=== PATIENT | female | born 1940 | race Caucasian/White ===

== ENCOUNTER → 2017-02-07 | Outpatient (CLI) | payer MEDICARE, BC ==
[~2017-02-07] MED LIST: DITROPAN XL10 MG PO; LISINOPRIL20 MG PO
== END ==
LOC: MC.RAD 13:14
DX: Z12.31 Encounter for screening mammogram for malignant neoplasm of breast (principal)

== ENCOUNTER 2018-02-06 11:00 | Outpatient (RCR) | payer MEDICARE, BC | END 2018-02-07 | disposition home or self-care (01) | LOC: WSPT | DX: I69.341 Monoplegia of lower limb following cerebral infarction affecting right dominant side (principal); R26.89 Other abnormalities of gait and mobility; Z91.81 History of falling | CPT/HCPCS: G8978-GP; G8979-GP ==

== ENCOUNTER → 2018-02-17 | Outpatient (CLI) | payer MEDICARE, BC | LOC: MC.RAD 11:04 | DX: Z12.31 Encounter for screening mammogram for malignant neoplasm of breast (principal) ==

== ENCOUNTER 2018-03-01 09:00 | Outpatient (RCR) | payer MEDICARE, BC | END 2018-03-07 10:00 | disposition home or self-care (01) | LOC: WSPT 09:00 | DX: I69.341 Monoplegia of lower limb following cerebral infarction affecting right dominant side (principal); Z91.81 History of falling | CPT/HCPCS: G8978-GP; G8979-GP; G8980-GP ==

== ENCOUNTER → 2019-01-08 | Outpatient (RCR) | payer MEDICARE, BC | END | disposition home or self-care (01) | LOC: WSPT | DX: I63.9 Cerebral infarction, unspecified (principal); R26.9 Unspecified abnormalities of gait and mobility ==

== ENCOUNTER → 2019-03-15 | Outpatient (CLI) | payer MEDICARE, BC | LOC: MC.RAD 11:26 | DX: Z12.31 Encounter for screening mammogram for malignant neoplasm of breast (principal) ==

== ENCOUNTER → 2020-03-20 | Outpatient (CLI) | payer MEDICARE, BC | LOC: MC.RAD 11:30 | DX: Z12.31 Encounter for screening mammogram for malignant neoplasm of breast (principal); N63.11 Unspecified lump in the right breast, upper outer quadrant ==

== ENCOUNTER → 2020-04-01 | Outpatient (CLI) | payer MEDICARE, BC | LOC: MC.RAD 14:00 | DX: N60.02 Solitary cyst of left breast (principal) ==

== ENCOUNTER → 2021-01-30 | Outpatient (CLI) | payer MEDICARE, BC | LOC: MC.RAD 11:00 | DX: N63.20 Unspecified lump in the left breast, unspecified quadrant (principal); N64.2 Atrophy of breast ==

== ENCOUNTER 2023-04-25 11:05 | Day surgery (SDC) | payer MEDICARE, BC ==
[2022-11-30 05:46] VITALS: O2SAT 100
[2022-11-30 05:47] VITALS: O2SAT 100; O2SAT 99
[2022-11-30 05:49] VITALS: O2SAT 100
[2022-11-30 05:50] VITALS: O2SAT 100
[2022-12-02] VITALS (79 sets, daily range): O2SAT 96–100
[2023-04-25] VITALS (7 sets, daily range): BP systolic 134–165; BP diastolic 50–92; PULSE 68–75; TEMP 98.2
[~2023-04-25] VITALS: Ht 162.6 cm; Wt 56.4 kg
[~2023-04-25 11:05] MED LIST changes: +BETAPACE 80MG80 MG PO; +CATAPRES0.2 MG PO; +CLEOCIN HCL300 MG PO; +CORDARONE200 MG/TAB PO; +COREG 25MG25 MG/TAB PO; +ELIQUIS 2.5 PO; +FISH OIL 500 M1 EAC1 PO; +GEMTESA75 MG PO; +HCTZ12.5TAB PO; +K-DUR20 MEQ PO; +LASIX 20MG TABL20 MG PO; +LASIX 40MG TABL40 MG PO; +LIPITOR 80MG80 MG PO; +MASON NATURAL2000 IU PO; +OSCAL 500 TAB500 MG PO; +PLAVIX 75MG TAB75 MG PO; +PRINIVIL20 MG PO; +PRINIVIL5 MG PO; +SANCTURA20 MG PO; +TOPROL XL 25MG25 MG PO; +ZESTRIL 5MG5 MG PO
[2023-04-25] MEDS ORDERED: PLAVIX 75MG TAB75 MG PO (11:43)
[2023-04-25 12:19] LABS: BASO % 0.4 % (0.0-2.0); EOS # 0.1 K/mm3 (0.0-0.7); GRAN # 5.5 K/mm3 (1.4-6.5); HEMOGLOBIN 11.5 g/dl (12.5-16.0); LYMPH # 0.7 K/mm3 (1.2-3.4); LYMPH % 10.7 % (20.0-51.0); MEAN CELL VOLUME 83 fl (80.0-100.0); MEAN CORPUSCULAR HEMOGLOBIN 26 pg (27-31); MEAN CORPUSCULAR HGB CONC 31 g/dl (33.0-37.0); MEAN PLATELET VOLUME 9.1 fl (7.4-10.4); MONO # 0.5 K/mm3 (0.1-0.6); MONO % 6.7 % (1.7-9.3); PLATELET COUNT 184 K/mm3 (130-400); RED BLOOD COUNT 4.43 M/mm3 (4.10-5.30); REDCELL DISTRIBUTION WIDTH-CV 14.6 % (11.5-14.5)
[2023-04-25] MEDS ORDERED: IMODIUM 2MG CAPS2 MG PO (12:22)
[2023-04-25] MEDS ORDERED: LASIX 40MG TABL40 MG PO (12:22)
[2023-04-25] MEDS ORDERED: COZAAR 50MG50 MG/TAB PO (12:23)
[2023-04-25] MEDS ORDERED: MELATONIN3 M1 PO (12:24)
[2023-04-25] MEDS ORDERED: NYSTATIN100000 U/1 TOP (12:24)
[2023-04-25 12:25] LABS: CALCIUM 9.2 mg/dL (8.4-10.2); CREATININE, serum 0.76 mg/dL (0.57-1.11); POTASSIUM 4.1 mmol/L (3.5-4.5)
[2023-04-25] MEDS ORDERED: REFRESH PLUS 00.4 M1 OP (12:25)
[2023-04-25] MEDS ORDERED: SYSTANE HYDRATI10 ML OP (12:26)
[2023-04-25] MEDS ORDERED: TYLENOL 325MG325 MG PO (12:26)
[2023-04-25 12:27] LABS: HEMATOCRIT 36.8 % (37.0-47.0)
[2023-04-25 12:28] LABS: INR 1.4 (0.8-3.0); PROTHROMBIN TIME 14.7 SECONDS (9.7-12.8)
--- NOTE | 2023-04-25 15:04 | NUR ---
Pt alert, oriented following TEVIN procedure. She is sipping water without issue. Muffin, crackers and juice provided. Pt denies further needs at this time. Call light in hand.
--- NOTE | 2023-04-25 16:00 | NUR ---
DC instructions reviewed with pt, she expresses understanding. Pt has eaten snacks and taken fluids following procedure, no c/o soreness to throat or issues swallowing. She is assisted up using wheelchair, and transfers to wheelchair. IV DC'd, site wrapped with coban. She is assisted out to meet [facility] staff with belongings.
== END 2023-04-25 16:00 | disposition home or self-care (01) ==
LOC: COL.CAR 11:05
PROVIDERS: Internal Medicine Cardiovascular Disease
DX: I34.0 Nonrheumatic mitral (valve) insufficiency (principal); Z95.5 Presence of coronary angioplasty implant and graft; Z96.9 Presence of functional implant, unspecified

== ENCOUNTER → 2023-08-15 | Outpatient (CLI) | payer MEDICARE, BC ==
[~2023-08-15] MED LIST changes: +COZAAR 50MG50 MG/TAB PO; +IMODIUM 2MG CAPS2 MG PO; +MELATONIN3 M1 PO; +NYSTATIN100000 U/1 TOP; +REFRESH PLUS 00.4 M1 OP; +SYSTANE HYDRATI10 ML OP; +TYLENOL 325MG325 MG PO
== END ==
LOC: MC.RAD 11:10
DX: Z12.31 Encounter for screening mammogram for malignant neoplasm of breast (principal)